=== PATIENT | male | born 1960 | race Asian ===

== ENCOUNTER 2017-07-19 12:27 | Inpatient (IN) | payer MEDICAID ==
[~2017-07-19] VITALS: Ht 172.7 cm; Wt 81.6 kg
[2017-07-19] MEDS ORDERED: NITROGLYCERIN SINGLE TAB 0.4 MG SL PRN (13:00)
[2017-07-19] MEDS ORDERED: ASPIRIN 81 MG TABLET CHEW PO ONE (13:00)
[2017-07-19] MEDS ORDERED: PLEASE ENTER ALLERGIES MC SCH ×2 (13:00)
[2017-07-19] MEDS ORDERED: SODIUM CHLORIDE FLUSH 10ML SYR IVF ONE (13:00)
[2017-07-19] MEDS ORDERED: ASPIRIN 81 MG TABLET CHEW ONE (13:04)
[2017-07-19 13:17] LABS: HEMATOCRIT 45.7 % (39.2-51.8); HEMOGLOBIN 15.7 g/dL (13.7-18.0); WHITE BLOOD COUNT 6.5 x10^3/uL (3.4-10)
[2017-07-19 13:27] LABS: BLOOD UREA NITROGEN 10 mg/dL (7-18)
[2017-07-19] MEDS ORDERED: SODIUM CHLORIDE FLUSH 10ML SYR IVF PRN (15:30)
[2017-07-19] MEDS: SODIUM CHLORIDE 0.9% 1,000 ML IV SCH (16:39)
[2017-07-19] MEDS ORDERED: ENALAPRILAT 1.25 MG/ML, 2ML IVPush PRN (17:00)
[2017-07-19] MEDS ORDERED: LORazepam 2 MG/ML, 1ML IVPush PRN (17:00)
[2017-07-19] MEDS ORDERED: BISACODYL 10 MG SUPP PR PRN (17:00)
[2017-07-19] MEDS ORDERED: hydrALAzine 20 MG/ML, 1ML IVPush PRN (17:00)
[2017-07-19] MEDS ORDERED: POLYETHYLENE GLYCOL 17 GM PACKET PO PRN (17:00)
[2017-07-19] MEDS ORDERED: ONDANSETRON 2MG/ML, 2ML IVPush PRN (17:00)
[2017-07-19] MEDS ORDERED: morphine SULFATE 10 MG/ML, 1ML IVPush PRN (17:00)
[2017-07-19] MEDS: INSULIN ASPART 100 UNITS/ML, PEN SQ-INSULIN SCH ×2 (17:00→21:00)
[2017-07-19] MEDS ORDERED: OXYcodone IR 5MG TABLET PO PRN (17:00)
[2017-07-19] MEDS ORDERED: GADOBUTROL 10 MMOL/10 ML VIAL ONE (18:09)
[2017-07-19 20:25] VITALS: BP 126/80
[2017-07-19] MEDS: PANTOPRAZOLE 40 MG IV IVPush SCH (20:58)
[2017-07-19] MEDS: HEPARIN 5,000 UNITS/ML, 1ML SQ SCH (20:59)
[2017-07-19] MEDS ORDERED: ATORVASTATIN 20 MG TABLET PO SCH (21:00)
[2017-07-19 21:22] LABS: IS PT STATUS REG ER OR PRE ER? NO
[2017-07-19 22:39] LABS: PATH.CAST-FLAG NOT PRESENT; SPERM-FLAG NOT PRESENT; SRC-FLAG NOT PRESENT; XTAL-FLAG NOT PRESENT; YLC-FLAG NOT PRESENT
[2017-07-19 23:01] VITALS: BP 126/80
[2017-07-20 02:55] VITALS: BP 118/73
[2017-07-20 03:10] LABS: HEMATOCRIT 48.9 % (39.2-51.8); HEMOGLOBIN 16.4 g/dL (13.7-18.0); WHITE BLOOD COUNT 7.1 x10^3/uL (3.4-10)
[2017-07-20 03:21] LABS: ASPARTATE AMINO TRANSFERASE 22 U/L (15-37); BLOOD UREA NITROGEN 11 mg/dL (7-18)
[2017-07-20 03:30] LABS: IS PT STATUS REG ER OR PRE ER? NO
[2017-07-20] MEDS: SODIUM CHLORIDE 0.9% 1,000 ML IV SCH (03:34)
[2017-07-20] MEDS: HEPARIN 5,000 UNITS/ML, 1ML SQ SCH ×2 (05:07→13:00)
[2017-07-20] MEDS ORDERED: ASPIRIN 325 MG TABLET EC PO SCH (06:00)
[2017-07-20] MEDS: INSULIN ASPART 100 UNITS/ML, PEN SQ-INSULIN SCH ×2 (07:00→11:00)
[2017-07-20 07:43] VITALS: BP 121/75
[2017-07-20] MEDS ORDERED: SENNA/DOCUSATE TABLET ONE (07:47)
[2017-07-20] MEDS ORDERED: HYDROCHLOROTHIAZIDE 12.5 MG CAPSULE ONE (07:47)
[2017-07-20] MEDS ORDERED: AMLODIPINE 5 MG TABLET ONE (07:48)
[2017-07-20] MEDS ORDERED: LOSARTAN 50MG TABLET ONE (07:48)
[2017-07-20] MEDS: PANTOPRAZOLE 40 MG IV IVPush SCH (08:18)
[2017-07-20] MEDS ORDERED: LOSARTAN 50MG TABLET PO SCH (09:00)
[2017-07-20] MEDS ORDERED: HYDROCHLOROTHIAZIDE 12.5 MG CAPSULE PO SCH (09:00)
[2017-07-20] MEDS ORDERED: AMLODIPINE 5 MG TABLET PO SCH (09:00)
[2017-07-20] MEDS ORDERED: SENNA/DOCUSATE TABLET PO SCH (09:00)
[2017-07-20] MEDS ORDERED: REGADENOSON 0.4 MG/5 ML SYRINGE ONE (09:46)
[2017-07-20 13:18] VITALS: BP 129/75
[2017-07-20] MEDS ORDERED: OMEP-110 PO (14:32)
[2017-07-20] MEDS ORDERED: METF500T4 PO (14:39)
[2017-07-20] MEDS ORDERED: ATOR20TA9 PO (14:39)
[2017-07-20] MEDS ORDERED: AMLO10TA2 PO (14:40)
[2017-07-20] MEDS ORDERED: LOSA1TAB19 PO (14:40)
== END 2017-07-20 15:21 | disposition home or self-care (01) | DRG 392 ==
LOC: ED 14:58 → EDIP 15:02 → 5SO 16:56
PROVIDERS: ADMIT Internal Medicine; ATTEND Internal Medicine
DX: K20.9 Esophagitis, unspecified (principal); E11.9 Type 2 diabetes mellitus without complications; E78.00 Pure hypercholesterolemia, unspecified; F10.20 Alcohol dependence, uncomplicated; F17.210 Nicotine dependence, cigarettes, uncomplicated; I10 Essential (primary) hypertension; K29.70 Gastritis, unspecified, without bleeding; Z79.82 Long term (current) use of aspirin; Z82.49 Family history of ischemic heart disease and other diseases of the circulatory system; R51 Headache
CPT/HCPCS: 36415; 70544; 70549; 70553; 71010; 78452; 80048; 80053; 80061; 81001; 82040; 82962; 83036; 83735; 83880; 84439; 84443; 84484; 85025; 85610; 85730; 87086; 93005; 93017; A9585; J1644; J2785; A9502; C9113; C9898; J7030

== ENCOUNTER → 2020-07-31 | Outpatient (CLI) | payer MEDICAID ==
[~2020-07-31] MED LIST: AMLO-211 PO; ATOR20TA37 PO; LOSA1TAB19 PO; METF500T17 PO; OMEP-110 PO
== END | disposition home or self-care (01) ==
LOC: CFH 10:45
PROVIDERS: ATTEND Nurse Practitioner Family
DX: M51.36 Other intervertebral disc degeneration, lumbar region (principal); M48.061 Spinal stenosis, lumbar region without neurogenic claudication; M53.3 Sacrococcygeal disorders, not elsewhere classified
CPT/HCPCS: 72114